=== PATIENT | female | born 1990 | race American Indian/Alaskan Native ===

== ENCOUNTER 2018-02-24 16:00 | Emergency (ER) | payer MEDICAID ==
[2018-02-24 16:21] VITALS: BP 119/81
[2018-02-24 17:10] LABS: Bilirubin,Urine NEG (Negative); Blood,Urine LG (Negative); Color,Urine Yellow (Yellow); Urobilinogen,Urine < 2.0 mg/dL (<2.0)
[2018-02-24 17:13] LABS: HCG Qualitative,Urine Negative (Negative)
--- NOTE | 2018-02-24 19:17 | Emergency Department Report ---
ED Female HPI - General Chief complaint: Urogenital-Female Stated complaint: FEVER/BLEEDING Time Seen by Provider: 02/24/18 19:05 Source: patient Mode of arrival: Ambulatory Limitations: No Limitations - History of Present Illness Initial comments: Patient here before that she felt feverish with chills and sweats since yesterday. She said she had small amount of blood when she wiped. And she is having pelvic pain with urinary burning and. Patient says she is on Depakote. Denies any vomiting but reports she had some nausea. Denies any back pain. Denies any vaginal discharge. She said her menstrual cycle is abnormal due to the pulp. This all started yesterday. Pain to pelvic areas 10 out of 10 and is crampy and it comes and goes. No alleviating or exacerbating factor and she did not take any medication. She denies any medical problems. MD Complaint: vaginal bleeding, dysuria, pelvic pain -: Last night Location: suprapubic Radiation: non-radiating Severity: severe Severity scale (0 -10): 10 Quality: cramping Consistency: intermittent Improves with: none Worsens with: none Are you Now?: No (she is on Depakote so she is irregular and does not remember LMP) Associated Symptoms: abdominal pain, nausea/vomiting, fever/chills, dysuria, hematuria. denies: vaginal discharge, vaginal bleeding, headaches, loss of appetite, rash, seizure, shortness of breath, syncope, weakness - Related Data Sexually active: No Home Medications Medication Instructions Recorded Confirmed Last Taken medroxyPROGESTERone ACETATE 150 mg IM ONCE 02/24/18 02/24/18 01/28/18 [Depo-Provera (Contraception)] Previous Rx's Medication Instructions Recorded Last Taken Type Ondansetron [Zofran Odt] 4 mg PO Q6H PRN #20 tab.rapdis 02/24/18 Unknown Rx Sulfamethoxazole/Trimethoprim 1 each PO BID 7 Days #14 tablet 02/24/18 Unknown Rx [Bactrim DS TAB] Allergies Allergy/AdvReac Type Severity Reaction Status Date / Time No Known Allergies Allergy Unverified 02/24/18 16:21 ED Review of Systems ROS: Stated complaint: FEVER/BLEEDING Other details as noted in HPI Constitutional: chills. denies: fever Eyes: denies: eye discharge ENT: denies: throat pain, congestion Respiratory: denies: cough, shortness of breath, wheezing Cardiovascular: denies: chest pain, palpitations, edema, syncope Gastrointestinal: abdominal pain, nausea. denies: vomiting, diarrhea, hematemesis, hematochezia Genitourinary: hematuria, abnormal menses. denies: urgency, dysuria, frequency , discharge Musculoskeletal: denies: back pain, joint swelling, arthralgia, myalgia Skin: denies: rash, lesions Neurological: denies: headache, weakness ED Past Medical Hx - Past Medical History Previous Medical History?: No - Surgical History Past Surgical History?: No - Family History Family history: no significant - Social History Smoking Status: Never Smoker Substance Use Type: Alcohol - Medications Home Medications: Home Medications Medication Instructions Recorded Confirmed Last Taken Type Ondansetron [Zofran Odt] 4 mg PO Q6H PRN #20 tab.rapdis 02/24/18 Unknown Rx Sulfamethoxazole/Trimethoprim 1 each PO BID 7 Days #14 tablet 02/24/18 Unknown Rx [Bactrim DS TAB] medroxyPROGESTERone ACETATE 150 mg IM ONCE 02/24/18 02/24/18 01/28/18 History [Depo-Provera (Contraception)] ED Physical Exam - General Limitations: No Limitations General appearance: alert, in no apparent distress - Head Head exam: Present: atraumatic, normocephalic, normal inspection - Eye Eye exam: Present: normal appearance, PERRL, EOMI Pupils: Present: normal accommodation - ENT ENT exam: Present: normal orophraynx, mucous membranes moist - Neck Neck exam: Present: normal inspection, full ROM. Absent: tenderness, meningismus, lymphadenopathy - Respiratory Respiratory exam: Present: normal lung sounds bilaterally. Absent: respiratory distress, chest wall tenderness - Cardiovascular Cardiovascular Exam: Present: regular rate, normal rhythm, normal heart sounds. Absent: systolic murmur, diastolic murmur - GI/Abdominal GI/Abdominal exam: Present: soft, normal bowel sounds. Absent: distended, tenderness, guarding, rebound, rigid, organomegaly, mass - Extremities Exam Extremities exam: Present: normal inspection, full ROM, normal capillary refill , other (No cce. + 2 pulses in all extremities, no neurovascular compromise). Absent: tenderness, pedal edema, joint swelling, calf tenderness - Back Exam Back exam: Present: normal inspection, full ROM, other (ambulates without any difficulties). Absent: tenderness, CVA tenderness (R), CVA tenderness (L), muscle spasm, paraspinal tenderness, vertebral tenderness, rash noted - Neurological Exam Neurological exam: Present: alert, oriented X3, normal gait, reflexes normal. Absent: motor sensory deficit - Psychiatric Psychiatric exam: Present: normal affect, normal mood - Skin Skin exam: Present: warm, dry, intact, normal color. Absent: rash ED Course Vital Signs 02/24/18 16:18 Temperature 98.1 F Pulse Rate 77 Respiratory 16 Rate Blood Pressure 119/81 O2 Sat by Pulse 100 Oximetry - Reevaluation(s) Reevaluation #1: 02/24/18 20:49 Patient given Rocephin 1 g IM and Zofran 8 mg ODT without any adverse reaction. Urine culture sent ED Medical Decision Making - Lab Data Lab Results 02/24/18 Range/Units 16:48 Urine Color Yellow (Yellow) Urine Turbidity Cloudy (Clear) Urine pH 5.0 (5.0-7.0) Ur Specific [place] 1.024 (1.003-1.030) Urine Protein 100 mg/dl (Negative) mg/dL Urine Glucose (UA) Neg (Negative) mg/dL Urine Ketones Neg (Negative) mg/dL Urine Blood Lg (Negative) Urine Nitrite Neg (Negative) Urine Bilirubin Neg (Negative) Urine Urobilinogen < 2.0 (<2.0) mg/dL Ur Leukocyte Esterase Mod (Negative) Urine WBC (Auto) 0.0 (0.0-6.0) /HPF Urine RBC (Auto) 0.0 (0.0-6.0) /HPF Urine HCG, Qual Negative (Negative) Urine culture sent - Medical Decision Making This is a 27-year-old female here report that she has blood in urine or her urine when she wipes, pelvic pain, nausea and she feels like she has fever with chills and sweats. She said this started last night. She is also complaining of urinary burning. She is on Depakote and cannot remember when she had her last period but said that she had the push at the beginning of the month. She is here to be evaluated I saw and evaluated patient. Her vital signs are stable and she is afebrile. Abdominal back exam is normal. Patient urinalysis shows cloudy urine, large amount of blood, and moderate leukocyte Estrace. Urine culture sent. HCG negative She had no CVA tenderness. I discussed the patient and her urinalysis results and let her know that she has acute cystitis with hematuria and will need to be treated with antibiotic. Patient was given antibiotic and antinausea medication in emergency room she has no nausea. She is able tolerate oral liquids without any nausea or vomiting. Assessment/plan Dysuria and hematuria-urinalysis shows cloudy urine, large amount of blood and moderate leukocyte Estrace. Urine culture sent. Acute cystitis with hematuria-patient given Rocephin 1 g IM and will be sent home on Bactrim DS Nausea-patient given Zofran 8 mg ODT which relieved her nausea and she was sent home on nausea medication Pelvic pain-resolved at present. test is negative Patient educated on diagnosis, laboratory results, medication and needs follow- up and increase her fluid intake. She does not have a primary care physician cytology needs to follow-up at [facility] in 3-5 days and she needs to make sure she takes all her antibiotic as prescribed. Patient discharged home in stable condition. Vital signs are stable she is afebrile. She has no nausea or pain at present. She is nontoxic in appearance. She is to follow-up at [facility] in 3-5 days and she voiced understanding. Discharged home with prescription for Phenergan and Bactrim DS. - Differential Diagnosis threatened miscarriage, pyelonephritis, acute cystitis Critical care attestation.: If time is entered above; I have spent that time in minutes in the direct care of this critically ill patient, excluding procedure time. ED Disposition Clinical Impression: Acute cystitis with hematuria, Pelvic pain, Dysuria, Nausea alone Disposition: DC-01 TO HOME OR SELFCARE Is pt being admited?: No Does the pt Need Aspirin: No Condition: Stable Instructions: Dysuria (ED), Urinary Tract Infection in Women (ED), Acute Hematuria (ED), Abdominal Pain (ED) Additional Instructions: Please follow up with outside Medical Center in 3-5 days Take medication as prescribed Increase fluid intake to 2-3 L of water daily If symptoms worsens the need to follow-up fever, nausea and her vomiting, back pain and increased abdominal pain, please return to the emergency room LYUBOV Referrals: PRIMARY CARE, [Primary Care Provider] - 3-5 Days [facility] [Outside] - 3-5 Days Forms: Work/School Release Form(ED)
[2018-02-24] MEDS ORDERED: ROCEPHIN IM STA (19:18)
[2018-02-24] MEDS ORDERED: ZOFRAN ODT PO ONE (19:19)
[2018-02-24] MEDS ORDERED: XYLOCAINE 1% MPF 5 mL INFILTRATI ONE (19:19)
== END 2018-02-24 21:05 | disposition home or self-care (01) ==
LOC: ED 16:00
DX: N30.01 Acute cystitis with hematuria (principal)
CPT/HCPCS: 81001; 81025; 87086; 96372; 99282; J0696; Q0162

== ENCOUNTER 2019-01-05 11:02 | Emergency (ER) | payer MEDICAID ==
[2019-01-05] MEDS ORDERED: SOLU-Medrol IV ONE (12:38)
[2019-01-05] MEDS ORDERED: NACL 0.9% 1000 ML 1,000 ML IV ONE (12:38)
[2019-01-05] MEDS ORDERED: BENADRYL IV ONE (12:39)
[2019-01-05] MEDS ORDERED: ADRENALINE P/F SUB-Q ONE (12:39)
[2019-01-05] MEDS ORDERED: PEPCID IV ONE (12:39)
--- NOTE | 2019-01-05 13:15 | Emergency Department Report ---
HPI - General Chief Complaint: Allergic Reaction Time Seen by Provider: 01/05/19 12:33 - HPI HPI: 28-year-old female presents to emergency department with the complaint of swelling to the lips and a slight rash around the lips that she be lieves is an allergic reaction to aloe vera. The patient placed at Aloe Vera on her lips earlier today and then put some cocoa butter as well. However the patient has used cocoa butter in the past without any problems or reactions. She denies any swelling of the tongue, throat, difficulty swallowing, shortness of breath, or any other acute symptoms. The patient tried 25 mg of Benadryl about 1 hour prior to arrival without much change or relief. She has a past medical history of asthma. No recent travel or sick contacts at home. She is a tobacco smoker. ED Past Medical Hx - Past Medical History Previous Medical History?: Yes Hx Asthma: Yes - Surgical History Past Surgical History?: No - Social History Smoking Status: Never Smoker Substance Use Type: Alcohol, Marijuana - Medications Home Medications: Home Medications Medication Instructions Recorded Confirmed Last Taken Type Ondansetron [Zofran Odt] 4 mg PO Q6H PRN #20 tab.rapdis 02/24/18 Unknown Rx Sulfamethoxazole/Trimethoprim 1 each PO BID 7 Days #14 tablet 02/24/18 Unknown Rx [Bactrim DS TAB] medroxyPROGESTERone ACETATE 150 mg IM ONCE 02/24/18 02/24/18 01/28/18 History [Depo-Provera (Contraception)] EPINEPHrine [Epipen 2-Sandeep] 0.3 mg IM ONCE PRN #1 box 01/05/19 Unknown Rx Famotidine [Pepcid] 20 mg PO BID #8 tablet 01/05/19 Unknown Rx diphenhydrAMINE [Benadryl CAP] 25 mg PO Q8HR PRN #12 capsule 01/05/19 Unknown Rx predniSONE [Deltasone] 20 mg PO BID #8 tab 01/05/19 Unknown Rx ED Review of Systems ROS: Stated complaint: ALLERGIC REACTION Other details as noted in HPI Comment: All other systems reviewed and negative Constitutional: denies: chills, fever Eyes: denies: eye pain, vision change ENT: other (swelling of the lips). denies: throat pain Respiratory: denies: cough, shortness of breath Cardiovascular: denies: chest pain, palpitations Gastrointestinal: denies: abdominal pain, vomiting Genitourinary: denies: dysuria, discharge Musculoskeletal: denies: back pain, arthralgia Skin: rash. denies: pruritus Neurological: denies: headache, weakness Physical Exam - Physical Exam Vital Signs: Vital Signs 01/05/19 11:05 Temperature 97.8 F Pulse Rate 77 Respiratory 16 Rate Blood Pressure 145/70 [right] O2 Sat by Pulse 99 Oximetry Physical Exam: GENERAL: The patient is well-developed well-nourished. HENT: Normocephalic. Atraumatic. Patient has moist mucous membranes. The patient has some angioedema with moderate upper and lower lip swelling. Oropharynx is clear. No swelling of the tongue. No drooling or trismus. EYES: Extraocular motions are intact. Pupils equal reactive to light bilaterally. NECK: Supple. Trachea is midline. CHEST/LUNGS: Clear to auscultation. There is no respiratory distress noted. HEART/CARDIOVASCULAR: Regular. There is no tachycardia. There is no murmur. ABDOMEN: Abdomen is soft, nontender. Patient has normal bowel sounds. There is no abdominal distention. SKIN: There are some small urticarial lesions around the upper and lower lips. Bleeding, weeping or drainage. NEURO: The patient is awake, alert, and oriented. The patient is cooperative. The patient has no focal neurologic deficits. The patient has normal speech. MUSCULOSKELETAL: There is no tenderness or deformity. There is no evidence of acute injury. ED Course Vital Signs 01/05/19 11:05 Temperature 97.8 F Pulse Rate 77 Respiratory 16 Rate Blood Pressure 145/70 [right] O2 Sat by Pulse 99 Oximetry ED Medical Decision Making - Medical Decision Making This patient presents to the emergency department with an allergic reaction that caused swelling of the lips as well as a slight rash around the lips. This is angioedema, I think it is more of a localized reaction since the most likely offending allergen/agent, the aloe vera cream, was placed directly on the lips. There is no swelling of the tongue, throat, complaints of shortness of breath, chest pain, difficulty swallowing. She was given steroids, Pepcid, Benadryl, IV resuscitation and a dose of subcutaneous epi consistent with what would be an EpiPen injection. The patient was reevaluated multiple times over about 5 and half hours and has remained stable. There is some slight improvement in her symptoms. Vital signs were stable throughout her ED course. We'll attempt to treat at home with a 3 to four-day course of steroids, Pepcid, Benadryl. She was given a prescription for EpiPen to use if there is any worsening of her angioedema including any involvement of the tongue, throat, signs of anaphylaxis. She understands that if she has to use the EpiPen, that she needs to call 911 or get to an emergency department immediately afterwards. The patient left the emergency department in stable condition. - Differential Diagnosis angioedema, allergic reaction, dermatitis, cellulitis Critical Care Time: No Critical care attestation.: If time is entered above; I have spent that time in minutes in the direct care of this critically ill patient, excluding procedure time. ED Disposition Clinical Impression: Angioedema Qualifiers: Encounter type: initial encounter Qualified Code(s): T78.3XXA - Angioneurotic edema, initial encounter Allergic reaction Qualifiers: Encounter type: initial encounter Qualified Code(s): T78.40XA - Allergy, unspecified, initial encounter Disposition: DC- TO HOME OR SELFCARE Is pt being admited?: No Condition: Stable Instructions: Angioedema (ED) Additional Instructions: Please follow up with a primary care physician. Take the medications as prescribed. Return to the emergency department immediately with any worsening of your symptoms, development of tongue or throat swelling, shortness of breath or chest pain, or with any acute distress. Prescriptions: diphenhydrAMINE [Benadryl CAP] 25 mg PO Q8HR PRN #12 capsule PRN Reason: Allergic Reaction predniSONE [Deltasone] 20 mg PO BID #8 tab EPINEPHrine [Epipen 2-Sandeep] 0.3 mg IM ONCE PRN #1 box PRN Reason: Anaphylaxis Famotidine [Pepcid] 20 mg PO BID #8 tablet Referrals: KATHRYN WING MD [Primary Care Provider] - 2-3 Days Time of Disposition: 16:52
[2019-01-05 16:06] VITALS: BP 106/68
== END 2019-01-05 17:04 | disposition home or self-care (01) ==
LOC: ED 11:02
DX: T78.3XXA Angioneurotic edema, initial encounter (principal); T78.40XA Allergy, unspecified, initial encounter; J45.909 Unspecified asthma, uncomplicated; F12.90 Cannabis use, unspecified, uncomplicated; X58.XXXA Exposure to other specified factors, initial encounter; Y93.89 Activity, other specified; Y92.89 Other specified places as the place of occurrence of the external cause; Y99.8 Other external cause status
CPT/HCPCS: 96372; 96374; 96375; 99283; J0171; J1200; J2930; J7030; 96361

== ENCOUNTER 2019-04-01 10:40 | Emergency (ER) | payer MEDICAID ==
[2019-04-01] MEDS ORDERED: BOOSTRIX IM ONE (11:47)
--- NOTE | 2019-04-01 11:47 | Emergency Department Report ---
HPI - General Chief Complaint: Laceration/Recheck/Suture Time Seen by Provider: 04/01/19 11:17 - HPI HPI: 28-year-old -L[place] female presents to the emergency department with a complaint of a laceration and pain to the ball of the left foot from about 2 days ago. The patient is here with her mother, who dropped one of her dishes on the floor, and the patient accidentally stepped on one of the shards. They were able to control any bleeding with some gauze dressing. She has not taken anything for her symptoms prior to arrival today. They're unsure about her last tetanus vaccination. No past medical history. ED Past Medical Hx - Past Medical History Hx Asthma: Yes - Surgical History Past Surgical History?: No - Social History Smoking Status: Never Smoker Substance Use Type: Marijuana - Medications Home Medications: Home Medications Medication Instructions Recorded Confirmed Last Taken Type Ondansetron [Zofran Odt] 4 mg PO Q6H PRN #20 tab.rapdis 02/24/18 Unknown Rx medroxyPROGESTERone ACETATE 150 mg IM ONCE 02/24/18 02/24/18 01/28/18 History [Depo-Provera (Contraception)] EPINEPHrine [Epipen 2-Sandeep] 0.3 mg IM ONCE PRN #1 box 01/05/19 Unknown Rx Famotidine [Pepcid] 20 mg PO BID #8 tablet 01/05/19 Unknown Rx diphenhydrAMINE [Benadryl CAP] 25 mg PO Q8HR PRN #12 capsule 01/05/19 Unknown Rx predniSONE [Deltasone] 20 mg PO BID #8 tab 01/05/19 Unknown Rx Sulfamethoxazole/Trimethoprim 1 each PO BID 7 Days #10 tablet 04/01/19 Unknown Rx [Bactrim DS TAB] ED Review of Systems ROS: Stated complaint: LT FOOT PAIN (STEPPED IN GLASS) Other details as noted in HPI Comment: All other systems reviewed and negative Constitutional: denies: chills, fever Musculoskeletal: arthralgia, myalgia. denies: joint swelling Skin: other (laceration). denies: rash Physical Exam - Physical Exam Vital Signs: Vital Signs 04/01/19 10:47 Temperature 98.3 F Pulse Rate 69 Respiratory 16 Rate Blood Pressure 121/82 O2 Sat by Pulse 100 Oximetry Physical Exam: GENERAL: The patient is well-developed well-nourished. HENT: Normocephalic. Atraumatic. Patient has moist mucous membranes. EYES: Extraocular motions are intact. NECK: Supple. Trachea is midline. SKIN: There is a 2 cm linear laceration to the ball of the left plantar foot, just proximal to the great toe. No surrounding redness. No bleeding, weeping, discharge. No foreign body seen. NEURO: The patient is awake, alert, and oriented. The patient is cooperative. The patient has no focal neurologic deficits. Normal speech. MUSCULOSKELETAL: There is tenderness to palpation to the plantar left foot to the area of the laceration. There is no limitation range of motion. ED Course Vital Signs 04/01/19 10:47 Temperature 98.3 F Pulse Rate 69 Respiratory 16 Rate Blood Pressure 121/82 O2 Sat by Pulse 100 Oximetry ED Medical Decision Making - Radiology Data Radiology results: image reviewed interpreted by me: X-ray of left foot does not show any fracture or dislocation or obvious radiopaque foreign body. - Medical Decision Making Patient presents 2-3 days after stepping on some glass with a left plantar foot laceration. X-ray does not show any fracture, dislocation or radiopaque foreign body. It is not a deep laceration or significantly gapped and there is no visible foreign body seen. The area was cleaned. Given that has been 2-3 days since the laceration occurred, I did not feel that suture repair was prudent. She was placed on antibiotics. The laceration was closed with Steri-Strips and Dermabond. She has been given a referral for podiatry. She has been given some crutches to be nonweightbearing to the affected left foot and to avoid tension on the Steri-Strips. - Differential Diagnosis laceration, foreign body, dislocation Critical Care Time: No Critical care attestation.: If time is entered above; I have spent that time in minutes in the direct care of this critically ill patient, excluding procedure time. ED Disposition Clinical Impression: Laceration of left foot Qualifiers: Encounter type: initial encounter Qualified Code(s): S91.312A - Laceration without foreign body, left foot, initial encounter Disposition: - TO HOME OR SELFCARE Is pt being admited?: No Condition: Stable Instructions: Laceration (ED), Skin Adhesive Care (ED) Additional Instructions: Please follow-up with a primary care physician in the next few days. I am also giving you a referral for a local jewelry coater, Dr. Arenas, to follow-up regarding your foot pain and laceration. The Steri-Strips should loosen up and fall off on their own in the next 2-3 days. Please do not pull them off. You can clean the area with some soap and water but then otherwise make sure it remains dry. Remain nonweightbearing to that left foot to give the laceration a chance to close up and heal. Please make sure you are seen with any signs or symptoms of infection such as increased pain, swelling, surrounding redness, discharge of pus, development of fever. Return to the emergency Department with any worsening of your symptoms or any acute distress. Prescriptions: Sulfamethoxazole/Trimethoprim [Bactrim DS TAB] 1 each PO BID 7 Days #10 tablet Referrals: PRIMARY CARE, [Primary Care Provider] - 3-5 Days JOSÉ MIGUEL ARENAS DPM [Staff Physician] - 3-5 Days Time of Disposition: 13:36
--- NOTE | 2019-04-01 12:42 | XRay Report ---
LEFT FOOT 3 VIEWS INDICATION / CLINICAL INFORMATION: Plantar foot pain and laceration; stepped on glass COMPARISON: None available. FINDINGS: BONES / JOINT(S): No acute fracture or subluxation. There is mild hallux valgus. No significant arthr itis. SOFT TISSUES: I do not identify a radiopaque foreign body. ADDITIONAL FINDINGS: None. IMPRESSION: No evidence of fracture or radiopaque foreign body. Signer Name: Mars Ramon MD Signed: 04/01/2019 12:38 PM Workstation Name: [id number]
[2019-04-01 13:50] VITALS: BP 120/80
== END 2019-04-01 13:50 | disposition home or self-care (01) ==
LOC: ED 10:40
DX: S91.312A Laceration without foreign body, left foot, initial encounter (principal); J45.909 Unspecified asthma, uncomplicated; F12.10 Cannabis abuse, uncomplicated; Z79.899 Other long term (current) drug therapy; Z91.011 Allergy to milk products; W01.110A Fall on same level from slipping, tripping and stumbling with subsequent striking against sharp glass, initial encounter; Y93.89 Activity, other specified; Y92.098 Other place in other non-institutional residence as the place of occurrence of the external cause; Y99.8 Other external cause status
CPT/HCPCS: 90471; 90715